=== PATIENT | female | born 1975 | race African-American/Black ===

== ENCOUNTER 2020-11-24 11:16 | Day surgery (SDC) | payer OTHER ==
[2020-11-17 16:13] VITALS: BMI 29.7
[2020-11-24] MEDS ORDERED: BUPIVACAINE HCL/PF 0.25% (2.5MG/ML) 10 ML VIAL ONE (12:18)
[2020-11-24] MEDS ORDERED: PROPOFOL 20 ML ONE (12:34)
[2020-11-24] MEDS ORDERED: MIDAZOLAM HCL 2 MG/2 ML SINGLE DOSE VIAL ONE (12:34)
[2020-11-24] MEDS ORDERED: ACETAMINOPHEN 1000 MG/100 ML VIAL (NON FORMULARY) IVPB ONE (13:13)
[2020-11-24] MEDS ORDERED: ONDANSETRON 4 MG/2 ML VIAL IVPUSH PRN (13:13)
[2020-11-24] MEDS ORDERED: oxyCODONE HCL 5 MG TABLET PO PRN (13:13)
[2020-11-24] MEDS ORDERED: LACTATED RINGERS SOLUTION 1,000 ML IV SCH (13:15)
[2020-11-24 15:00] VITALS: BP 148/85; PULSE 67; TEMP 97.9
== END 2020-11-24 15:02 | disposition home or self-care (01) ==
LOC: FASU 11:16
PROVIDERS: ATTEND Orthopaedic Surgery Hand Surgery
PROC: 01N54ZZ Release Median Nerve, Percutaneous Endoscopic Approach (ICD-10-PCS; principal; 2020-11-24 13:22)
DX: G56.01 Carpal tunnel syndrome, right upper limb (principal)
CPT/HCPCS: 84703; 94760